=== PATIENT | female | born 1955 | race Caucasian/White ===

== ENCOUNTER 2018-05-05 14:30 | Emergency (ER) | payer OTHER, MEDICAID ==
[~2018-05-05] VITALS: Ht 165.1 cm; Wt 70.0 kg
[~2018-05-05 14:30] MED LIST: EFFEXOR; SEROQUEL
[2018-05-05 15:01] VITALS: Ht 165.1 cm; Wt 70.0 kg
[2018-05-05] MEDS ORDERED: LORAZEPAM 1 MG TAB PO ONE (15:30)
--- NOTE | 2018-05-05 16:50 | ERD ---
ER Documentation Chief Complaint Chief Complaint depressed hasn't been taking meds since Saturday HPI 62-year-old female who presents with tearfulness and depression and suicidal thoughts with possible plan of overdosing on medication. She states that she is having social issues living at a correction. Patient states that she has not been taking her venlafaxine for approximately 2 days. The patient has been noted to have elevated blood pressure but does not take a daily blood pressure medication. She denies headache chest pain or shortness of breath. No other complaints currently. ROS All systems reviewed and are negative except as per history of present illness. Medications Home Meds Reported Medications Seroquel 01/18/10 Effexor 01/18/10 Allergies Allergies: Coded Allergies: No Known Drug Allergies (Verified Allergy, Mild, 01/18/10) PMhx/Soc History of Surgery: No Anesthesia Reaction: No Hx Neurological Disorder: No Hx Respiratory Disorders: No Hx Cardiac Disorders: Yes (HTN) Hx Psychiatric Problems: Yes (DEPRESSION) Hx Miscellaneous Medical Probl: No Hx Alcohol Use: No Hx Substance Use: No Hx Tobacco Use: Yes Smoking Status: Current every day smoker FmHx Family History: No diabetes Physical Exam Vitals Vital Signs Date Temp Pulse Resp B/P (MAP) Pulse Ox O2 O2 Flow FiO2 Time Delivery Rate 05/05/18 98.6 90 18 217/123 99 15:01 (154) Physical Exam General: Well developed, well nourished, no acute distress Head: Normocephalic, atraumatic. Eyes: Pupils equally reactive, EOM intact ENT: Moist mucous membranes Neck: Supple, no lymphadenopathy Respiratory: Lungs clear bilaterally, no distress Cardiovascular: RRR, no murmurs, rubs, or gallops Abdominal: Soft, non-tender, non-distended, no peritoneal signs : Deferred MSK: No edema, no unilateral swelling, 5/5 strength Neurologic: Alert and oriented, moving all extremities, normal speech, no focal weakness, no cerebellar signs Skin: No rash Psych: Tearful, suicidal thoughts with active plan Result Diagram: 05/05/18 1554 05/05/18 1554 Results 24 hrs Laboratory Tests Test 05/05/18 15:54 White Blood Count 8.8 10^3/ul Red Blood Count 5.15 10^6/ul Hemoglobin 16.0 g/dl Hematocrit 46.0 % Mean Corpuscular Volume 89.3 fl Mean Corpuscular Hemoglobin 31.1 pg Mean Corpuscular Hemoglobin Concent 34.8 g/dl Red Cell Distribution Width 12.7 % Platelet Count 239 10^3/UL Mean Platelet Volume 10.9 fl Immature Granulocytes % 0.500 % Neutrophils % 56.0 % Lymphocytes % 31.8 % Monocytes % 7.8 % Eosinophils % 3.2 % Basophils % 0.7 % Nucleated Red Blood Cells % 0.0 /100WBC Immature Granulocytes # 0.040 10^3/ul Neutrophils # 5.0 10^3/ul Lymphocytes # 2.8 10^3/ul Monocytes # 0.7 10^3/ul Eosinophils # 0.3 10^3/ul Basophils # 0.1 10^3/ul Nucleated Red Blood Cells # 0.0 10^3/ul Sodium Level 143 mmol/L Potassium Level 3.9 mmol/L Chloride Level 112 mmol/L Carbon Dioxide Level 22 mmol/L Anion Gap 9 Blood Urea Nitrogen 10 mg/dl Creatinine 0.69 mg/dl Est Glomerular Filtrat Rate mL/min > 60 mL/min Glucose Level 111 mg/dl Calcium Level 9.7 mg/dl Total Bilirubin 0.4 mg/dl Direct Bilirubin 0.00 mg/dl Indirect Bilirubin 0.4 mg/dl Aspartate Amino Transf (AST/SGOT) 29 IU/L Alanine Aminotransferase (ALT/SGPT) 28 IU/L Alkaline Phosphatase 116 IU/L Total Protein 8.2 g/dl Albumin 4.4 g/dl Globulin 3.80 g/dl Albumin/Globulin Ratio 1.15 Urine Opiates Screen Negative Urine Barbiturates Negative Urine Amphetamines Screen Negative Urine Benzodiazepines Screen Negative Urine Cocaine Screen Negative Urine Cannabinoids Negative Ethyl Alcohol Level < 10.0 mg/dl Current Medications Medications Dose Sig/Yolanda Start Time Status Last (Trade) Ordered Route PRN Stop Time Admin Dose Reason Admin Lorazepam 1 mg ONCE ONCE 05/05/18 DC 05/05/18 (Ativan) PO 15:30 16:06 05/05/18 15:31 Procedures/MDM EKG/DIAGNOSTIC IMAGING: [None Required] LAB INTERPRETATION: [No acute process] MEDICAL DECISION MAKING: The patient's presentation is consistent with underlying psychiatric illness and likely exacerbation of this illness and/or psychosis. I have a much lower clinical concern for delirium or acute organic pathology such as toxicologic, metabolic, ischemic, intracranial hemorrhage, infectious process. However, we must rule this out prior to relying a diagnosis of underlying psychiatric illness. The patient's workup will include medical screening examination and appropriate laboratory testing. If the patient's medical examination does not reveal acute organic pathology the patient will be medically cleared for psychiatric evalua tion. Patient's blood pressure was elevated (>120/80) but appears stable without evidence of hypertensive emergency or urgency. The patient was counseled about the risks of hypertension and urged to pursue outpatient monitoring and therapy within a week with their primary care physician. Blood pressure improved without intervention consider possible stress response ER COURSE: * Ativan provided. Blood pressure improved. * The patient's evaluation does not suggest an acute organic pathology. At this time I believe the patient's presentation is very consistent with underlying psychiatric illness. The patient is medically cleared for psychiatric evaluation. CONSULTATION: Psychiatric consultation: Telemetry medicine psychiatry has been consulted on this case to evaluate the patient for possible acute psychiatric illness that would require inpatient hospitalization. DISPOSITION PLAN: Pending telemetry medicine psychiatry evaluation Departure Diagnosis: Primary Impression: Depression Depression Type: unspecified Qualified Codes: F32.9 - Major depressive disorder, single episode, unspecified Additional Impressions: Asymptomatic hypertensive urgency Suicidal ideation Condition: Stable DURGA GUILLAUME MD May 05, 2018 16:50
--- NOTE | 2018-05-05 17:26 | PSY ---
Date/Time of Note Date/Time of Note DATE: 05/05/18 TIME: 20:25 Psychiatric Subjective Eval Consent Pt consented to telemedicine: Yes Subjective Evaluation Patient location: emergency Chief Complaint: depressed hasn't been taking meds since Saturday History of present illness 62 yo female with ho depression, reports depression and a desire to kill self wi th plan to run into traffic. Denies psychosis or drug use. Past Psych Hx: denies ho psych admits or suicide attempts PMHx: arthritis, htn nkda Meds: not taking MSE: casually groomed, depressed, cooperative, organized, no delusions no avh +SI Imp; 62 yo female wants to kill herself voluntary psych admit utox Medical history Problems Medical Problems: (1) Asymptomatic hypertensive urgency Status: Acute (2) Depression Status: Acute (3) Suicidal ideation Status: Acute Allergies: Coded Allergies: No Known Drug Allergies (Verified Allergy, Mild, 01/18/10) Psychiatric Objective Eval Mental Status Examination: Laboratory Results Laboratory Tests Test 05/05/18 15:54 White Blood Count 8.8 10^3/ul Red Blood Count 5.15 10^6/ul Hemoglobin 16.0 g/dl Hematocrit 46.0 % Mean Corpuscular Volume 89.3 fl Mean Corpuscular Hemoglobin 31.1 pg Mean Corpuscular Hemoglobin Concent 34.8 g/dl Red Cell Distribution Width 12.7 % Platelet Count 239 10^3/UL Mean Platelet Volume 10.9 fl Immature Granulocytes % 0.500 % Neutrophils % 56.0 % Lymphocytes % 31.8 % Monocytes % 7.8 % Eosinophils % 3.2 % Basophils % 0.7 % Nucleated Red Blood Cells % 0.0 /100WBC Immature Granulocytes # 0.040 10^3/ul Neutrophils # 5.0 10^3/ul Lymphocytes # 2.8 10^3/ul Monocytes # 0.7 10^3/ul Eosinophils # 0.3 10^3/ul Basophils # 0.1 10^3/ul Nucleated Red Blood Cells # 0.0 10^3/ul Sodium Level 143 mmol/L Potassium Level 3.9 mmol/L Chloride Level 112 mmol/L Carbon Dioxide Level 22 mmol/L Anion Gap 9 Blood Urea Nitrogen 10 mg/dl Creatinine 0.69 mg/dl Est Glomerular Filtrat Rate mL/min > 60 mL/min Glucose Level 111 mg/dl Calcium Level 9.7 mg/dl Total Bilirubin 0.4 mg/dl Direct Bilirubin 0.00 mg/dl Indirect Bilirubin 0.4 mg/dl Aspartate Amino Transf (AST/SGOT) 29 IU/L Alanine Aminotransferase (ALT/SGPT) 28 IU/L Alkaline Phosphatase 116 IU/L Total Protein 8.2 g/dl Albumin 4.4 g/dl Globulin 3.80 g/dl Albumin/Globulin Ratio 1.15 Urine Opiates Screen Negative Urine Barbiturates Negative Urine Amphetamines Screen Negative Urine Benzodiazepines Screen Negative Urine Cocaine Screen Negative Urine Cannabinoids Negative Ethyl Alcohol Level < 10.0 mg/dl Assessment and Plan Recommendation/Plan Multiple antipsychotics: No Discharge Disposition: Psychiatric inpatient Legal Status: Voluntary DAMIR MARTINEZ May 05, 2018 17:26
[2018-05-05] MEDS ORDERED: VENL150C PO (19:55)
--- NOTE | 2018-05-06 03:23 | EN ---
Date/Time of Note Date/Time of Note DATE: 05/06/18 TIME: 03:22 ER Progress Note Psychiatric Observation Note: Indication: Psychosis Duration: Greater than 4 hours Family history: As documented in original HPI The patient was observed with serial exams over the above timeframe. The patient continued to be well-appearing, and observation continued without complication. All other needs have been met during emergency department stay. Routine psychiatric medications ordered: Pending placement Hold status: Recommended for psychiatric inpatient by telemetry medicine. Pending placement at this time HANG LANDRUM May 06, 2018 03:23
[2018-05-06] MEDS ORDERED: VENLAFAXINE (XR) 75 MG CAP PO SCH ×2 (11:00)
[2018-05-06] MEDS ORDERED: VENLAFAXINE (XR) 37.5 MG CAP PO ONE (11:00)
--- NOTE | 2018-05-06 14:25 | QN ---
Documentation Comment Psychiatric Observation Note: Indication: Depression, psychosis, initial suicidal ideation Duration: Greater than 6 hours during my care Family history: As documented in original HPI The patient was observed with serial exams over the above timeframe by me personally at the bedside. Patient no longer has suicidal homicidal ideation and the social media editor spoke to her at the bedside and provided both verbal and written counseling. Arrangements were made to transfer the patient to a senior care for continued management and observation and the patient is willing to undergo this treatment. She has no plan at this time to kill or hurt herself. The patient continued to be well-appearing, and observation continued without complication. All other needs have been met during emergency department stay. Routine psychiatric medications ordered: Placement will be transferred to senior care Hold status:Placement will be transferred to senior care ROSHNI BLACK MD May 06, 2018 14:25
[2018-05-06 19:40] VITALS: BP 145/79; PULSE 68; RESP 16
== END 2018-05-06 19:50 ==
LOC: E/R 14:30
DX: F32.9 Major depressive disorder, single episode, unspecified (principal); I16.0 Hypertensive urgency; I10 Essential (primary) hypertension; F17.210 Nicotine dependence, cigarettes, uncomplicated
CPT/HCPCS: 36415; 80053; 80307; 85025